=== PATIENT | female | born 1985 | race Caucasian/White ===

== ENCOUNTER 2022-10-11 06:32 | Emergency (ER) | payer OTHER ==
[2022-10-11 06:50] VITALS: BP 103/64; PULSE 94; RESP 20; TEMP 97.9; BMI 26.4
[2022-10-11] MEDS ORDERED: LACTATED RINGERS SOLUTION 1,000 ML/1,000 ML INFUS.BAG IV STA (07:39)
[2022-10-11] MEDS ORDERED: KETOROLAC TROMETHAMINE 15 MG/ML VIAL IVPUSH ONE (07:40)
[2022-10-11] MEDS ORDERED: KETOROLAC TROMETHAMINE 15 MG/ML VIAL ONE (07:50)
[2022-10-11 08:15] LABS: BASO % 0.3 % (0-2.0); EOS % 1.2 % (0-4.5); HEMATOCRIT 38.5 % (32.4-45.2); HEMOGLOBIN 13.2 GM/dL (10.7-15.3); LYMPH % 14.9 % (8-40); MCH 29.4 pg (25.7-33.7); MCHC 34.4 g/dl (32.0-36.0); MEAN CELL VOLUME 85.4 fl (80-96); MEAN PLT VOLUME 7.9 fl (7.5-11.1); MONO % 5.7 % (3.8-10.2); NEUT % 77.9 % (42.8-82.8); PLATELET COUNT 277 10^3/uL (134-434); RBC 4.51 M/mm3 (3.60-5.2); RDW 12.9 % (11.6-15.6); WHITE BLOOD COUNT 10.5 K/mm3 (4.0-10.0)
[2022-10-11 08:32] LABS: CALCIUM 9.1 mg/dL (8.5-10.1)
[2022-10-11 08:36] LABS: CREATININE 0.7 mg/dL (0.55-1.3)
[2022-10-11 08:38] LABS: BILIRUBIN,TOTAL 0.4 mg/dL (0.2-1); TOT PROT 7.3 g/dl (6.4-8.2)
[2022-10-11 08:45] LABS: EPI CELLS 17 /uL (0-25.1); HCG,QUALITATIVE URINE Negative; HYALINE CASTS 1 /uL (0-3.1); PH,URINE 5.5 (5.0-8.0); URINE APPEARANCE CLEAR; URINE BACTERIA 488 /uL (0-1359); URINE BILIRUBIN NEGATIVE (NEGATIVE); URINE COLOR YELLOW; URINE GLUCOSE (UA) NEGATIVE (NEGATIVE); URINE KETONE NEGATIVE (NEGATIVE); URINE LEUK ESTERASE NEGATIVE (NEGATIVE); URINE NITRITE NEGATIVE (NEGATIVE); URINE PROTEIN NEGATIVE (NEGATIVE); URINE RBC 24 /uL (0-23.9); URINE UROBILINOGEN 0.2 mg/dL (0.2-1.0); URINE WBC 6 /uL (0-25.8)
== END 2022-10-11 12:15 | disposition home or self-care (01) ==
LOC: JER 06:32
PROC: 3E0333Z Introduction of Anti-inflammatory into Peripheral Vein, Percutaneous Approach (ICD-10-PCS; principal; 2022-10-11)
PROC: 3E0337Z Introduction of Electrolytic and Water Balance Substance into Peripheral Vein, Percutaneous Approach (ICD-10-PCS; 2022-10-11)
DX: R31.29 Other microscopic hematuria (principal); R82.71 Bacteriuria; R10.11 Right upper quadrant pain
CPT/HCPCS: 36415; 71046-TC-FY; 76775-TC; 80053; 81003; 83690; 84703; 85025; 93005; 93010; 99285-25

== ENCOUNTER 2023-05-01 12:43 | Emergency (ER) | payer OTHER ==
[2023-05-01 12:54] VITALS: BP 138/72; PULSE 84; RESP 18; TEMP 97.8; BMI 27.3
[2023-05-01] MEDS ORDERED: LIDOCAINE HCL 2% JELLY 10 ML CARTRIDGE PR ONE (14:31)
[2023-05-01] MEDS ORDERED: HYDROCORTISONE 2.5% TOPICAL CREAM 30 GM TUBE TP SCH (14:45)
[2023-05-01] MEDS ORDERED: KETOROLAC TROMETHAMINE 15 MG/ML VIAL IM ONE (16:41)
[2023-05-01] MEDS ORDERED: KETOROLAC TROMETHAMINE 30 MG/1 ML VIAL ONE (16:43)
== END 2023-05-01 16:49 | disposition home or self-care (01) ==
LOC: JERFT 12:43
PROC: 3E0233Z Introduction of Anti-inflammatory into Muscle, Percutaneous Approach (ICD-10-PCS; principal; 2023-05-01)
DX: K62.89 Other specified diseases of anus and rectum (principal); K64.4 Residual hemorrhoidal skin tags; K59.00 Constipation, unspecified
CPT/HCPCS: 99284-25

== ENCOUNTER 2023-06-25 05:00 | Day surgery (SDC) | payer OTHER ==
[2023-06-21 08:54] VITALS: BMI 23.6
[2023-06-25] MEDS ORDERED: MIDAZOLAM HCL 2 MG/2 ML SINGLE DOSE VIAL ONE ×2 (09:54→10:18)
[2023-06-25] MEDS ORDERED: LACTATED RINGERS SOLUTION 1,000 ML IV SCH (10:00)
[2023-06-25] MEDS ORDERED: BUPIVACAINE HCL/PF 0.25% (2.5MG/ML) 10 ML VIAL ONE (10:00)
[2023-06-25] MEDS ORDERED: PROMETHAZINE HCL 25 MG/1 ML VIAL IVPB PRN (10:00)
[2023-06-25] MEDS ORDERED: ONDANSETRON 4 MG/2 ML VIAL IVPUSH PRN (10:00)
[2023-06-25] MEDS ORDERED: oxyCODONE HCL 5 MG TABLET PO PRN ×2 (10:00)
[2023-06-25] MEDS ORDERED: ACETAMINOPHEN 1000 MG/100 ML BAG IVPB PRN (10:01)
[2023-06-25] MEDS ORDERED: FENTANYL CITRATE/PF 50 MCG/ML VIAL ONE (10:08)
[2023-06-25] MEDS ORDERED: KETOROLAC TROMETHAMINE 30 MG/1 ML VIAL ONE (10:26)
[2023-06-25] MEDS ORDERED: PROPOFOL 20 ML ONE (10:27)
[2023-06-25] MEDS ORDERED: BUPIVACAINE HCL/PF 0.25% (2.5MG/ML) 10 ML VIAL IJ ONE (10:43)
[2023-06-25 13:00] VITALS: RESP 18
[2023-06-25 13:43] VITALS: BP 113/63; PULSE 62; TEMP 97.8
== END 2023-06-25 15:20 | disposition home or self-care (01) ==
LOC: JASU-SURG 05:00
PROVIDERS: ATTEND Surgery
PROC: 06BY0ZC Excision of Hemorrhoidal Plexus, Open Approach (ICD-10-PCS; principal; 2023-06-25 10:15)
DX: K64.8 Other hemorrhoids (principal)
CPT/HCPCS: 81025; 88304-TC; 94760